=== PATIENT | female | born 1995 | race African-American/Black ===

== ENCOUNTER 2022-11-21 05:56 | Emergency (ER) | payer MEDICAID ==
[~2022-11-21] VITALS: Ht 167.6 cm; Wt 69.0 kg
[2022-11-21 05:58] VITALS: BP 128/87
== END 2022-11-21 06:52 | disposition left against medical advice (07) ==
LOC: ER 05:56
DX: M79.645 Pain in left finger(s) (principal)
CPT/HCPCS: 81025; 99283

== ENCOUNTER 2023-12-17 09:51 | Emergency (ER) | payer MEDICAID, OTHER ==
[~2023-12-17] VITALS: Ht 167.6 cm; Wt 82.0 kg
[2023-12-17 09:52] VITALS: O2SAT 100
[2023-12-17 10:45] LABS: DIFFERENTIAL COMMENT 0; EOSINOPHILS % 0.6 % (0.0-5.0); HEMATOCRIT. 36.8 % (36.0-48.0); HEMOGLOBIN. 11.5 g/dL (12.0-16.0); LYMPHOCYTES % 37.6 % (20.0-50.0); MEAN CORPUSCULAR HEMOGLOBIN 26.3 pg (28.0-32.0); MEAN CORPUSCULAR HGB CONC 31.1 g/dL (31.0-37.0); MEAN CORPUSCULAR VOLUME 84.3 fL (81.0-99.0); MONOCYTES % 6.7 % (2.0-8.0); NEUTROPHILS % 54.1 % (40.0-76.0); PLATELET 411 x1000/uL (130-400); RED BLOOD CELL COUNT 4.37 mill/uL (4.2-5.4); RED CELL DISTRIBUTION WIDTH 18.5 % (11.6-14.6); WHITE BLOOD COUNT 5.6 x1000/uL (4.5-11.0)
[2023-12-17 11:01] LABS: CHLORIDE 107 mEq/L (98-107); POTASSIUM 3.4 mEq/L (3.5-5.1); SODIUM 139 mEq/L (136-145)
[2023-12-17 11:02] LABS: CARBON DIOXIDE 22 mEq/L (21-32)
[2023-12-17 11:03] LABS: CALCIUM 9.5 mg/dL (8.7-10.4)
[2023-12-17 11:07] LABS: CREATININE 0.8 mg/dL (0.6-1.0); GLUCOSE 75 mg/dL (70-105)
[2023-12-17 11:08] LABS: UREA NITROGEN BLOOD 5 mg/dL (9-23)
[2023-12-17 11:09] LABS: ACETAMINOPHEN < 2 ug/mL (10-30)
[2023-12-17 11:12] LABS: HCG SCREEN NEGATIVE; THYROID STIMULATING HORMONE 1.03 uIU/mL (0.55-4.78)
[2023-12-17 11:18] LABS: ETHANOL BLOOD < 10 mg/dL (<10)
[2023-12-17] MEDS: HALOPERIDOL LACTATE 5MG/ML VIAL IM ONE (12:02)
[2023-12-17] MEDS: MIDAZOLAM HCL 2 MG/2 ML VIAL IM ONE (12:02)
[2023-12-17] MEDS: QUETIAPINE FUMARATE 50MG TABLET PO SCH (15:45)
[2023-12-18 02:41] LABS: CLARITY URINE CLOUDY (CLEAR); COLOR URINE DARK YELLOW (YELLOW); GLUCOSE URINE NEGATIVE (NEGATIVE); KETONES URINE NEGATIVE (NEGATIVE); LEUKOCYTE ESTERASE URINE TRACE (NEGATIVE); NITRITE URINE NEGATIVE (NEGATIVE); OCCULT BLOOD URINE NEGATIVE (NEGATIVE); PROTEIN URINE TRACE (NEGATIVE); SPECIFIC GRAVITY URINE 1.029 (1.005-1.030)
[2023-12-18 02:48] LABS: *AMPHETAMINES SCREEN URINE PRESUMPTIVE POSITIVE (NEGATIVE); *BARBITURATES SCREEN URINE NEGATIVE (NEGATIVE); *BENZODIAZEPINES SCREEN URINE NEGATIVE (NEGATIVE); CANNABINOID URINE SCREEN PRESUMPTIVE POSITIVE (NEGATIVE); ECSTASY MDMA SCREEN URINE CONF.TEST INDICATED (NEGATIVE); METHADONE URINE SCREEN NEGATIVE (NEGATIVE); OPIATES URINE SCREEN NEGATIVE (NEGATIVE); PHENCYCLIDINE URINE SCREEN NEGATIVE (NEGATIVE)
[2023-12-18 02:58] LABS: *COCAINE SCREEN URINE NEGATIVE (NEGATIVE)
[2023-12-18 03:25] LABS: RBC URINE 0-2 /hpf (0-2); SQUAMOUS EPITHELIAL CELL URINE FEW /lpf (RARE/1+)
[2023-12-18 03:27] LABS: BACTERIA URINE NONE SEEN
[2023-12-18] MEDS: DIPHENHYDRAMINE 50MG/ML VIAL IM STA (14:27)
[2023-12-18] MEDS: LORAZEPAM 2MG/ML INJ IM STA (14:27)
[2023-12-18] MEDS: HALOPERIDOL LACTATE 5MG/ML VIAL IM STA (14:27)
[2023-12-19] MEDS: DIPHENHYDRAMINE 50MG/ML VIAL IM STA (12:21)
[2023-12-19] MEDS: HALOPERIDOL LACTATE 5MG/ML VIAL IM ONE (12:30)
[2023-12-19] MEDS: LORAZEPAM 2MG/ML INJ IM ONE (12:30)
[2023-12-20 11:50] VITALS: BP 125/74; PULSE 71; RESP 16; TEMP 98.2
== END 2023-12-20 12:24 | disposition home or self-care (01) ==
LOC: ER 10:22
DX: R46.2 Strange and inexplicable behavior (principal); R51.9 Headache, unspecified; Z88.6 Allergy status to analgesic agent
CPT/HCPCS: 80305; 81003; 80048; 80307; 80329; 80320; 84703; 84443; 85025; 36415; 70450; 72125; 99291; 96372 ×2; J1630 ×3; J2250; Z7610 ×4; J1200 ×2; J2060 ×2; G0480